=== PATIENT | male | born 1925 | race Caucasian/White ===

== ENCOUNTER 2016-11-29 08:25 | Emergency (ER) | payer MEDICARE, BC ==
--- NOTE | 2016-11-29 08:46 | EDM.PDOC ---
ED HPI GENERAL MEDICAL PROBLEM - General Stated Complaint: HEAD INJURY Time Seen by Provider: 11/29/16 08:25 Source of Information: Reports: Patient, EMS, Family History Limitations: Reports: Altered Mental Status, Physical Impairment - History of Present Illness INITIAL COMMENTS - FREE TEXT/NARRATIVE: 89 years old w m with history of Parkinson and mental retardation, came to the ed by EMS after he fell [facility] the [facility], unwitnessed on the back of his head. No LOC as per EMS. Pt was able to walk with a walker before and after the fall. No other acute medical issues. BP 146/97 pulse 71 Temp 37.4 O2 98% on RA RR 17 Onset Date: 11/29/16 Onset Time: 06:00 Duration: Hour(s): Location: Reports: Head back of the head Pain Score (Numeric/FACES): 5 - Related Data Allergies Allergy/AdvReac Type Severity Reaction Status Date / Time No Known Allergies Allergy Verified 11/29/16 08:56 Home Meds: Home Meds Aspirin 81 mg PO DAILY 11/29/16 [History] Calcium Carb & Citrate/Vit D3 [Calcium + D3 ER Tablet] 1 tab PO DAILY 11/29/16 [ History] Carbidopa/Levodopa [Sinemet 25-100 mg Tablet] 0.5 tab PO BID 11/29/16 [History] Cholecalciferol (Vitamin D3) [Vitamin D3] 2,000 unit PO DAILY 11/29/16 [History] Cyanocobalamin (Vitamin B-12) [B-12] 500 mcg PO DAILY 11/29/16 [History] FLUoxetine [PROzac] 10 mg PO DAILY 11/29/16 [History] Fluticasone Propionate [Flovent HFA 100 mcg] 2 puff PO BID 11/29/16 [History] Gluc 2KCl/Chondr/Antonio Hy/Hy Ac [Glucosamine & Chondroitin Cap] 1 cap PO DAILY [History] Lutein/Min/Vit C/Vit E Acetate [Ocuvite Lutein] 1 cap PO DAILY 11/29/16 [History ] [place]-3 Fatty Acids/Fish Oil [Cvs Fish Oil 1,000 mg Softgel] 1,000 mg PO DAILY 11/29/16 [History] Polyethylene Glycol 3350 [MiraLAX] 17 gm PO DAILY 11/29/16 [History] Potassium 99 mg PO DAILY 11/29/16 [History] Vitamin E 1,000 unit PO DAILY 11/29/16 [History] Review of Systems - Review of Systems Review Of Systems: Unable To Obtain ED EXAM, GENERAL - Physical Exam Exam: See Below Exam Limited By: Altered Mental Status General Appearance: Alert, WD/WN, Mild Distress Eye Exam: Bilateral Eye: Normal Inspection Ears: Normal External Exam Ear Exam: Bilateral Ear: Auricle Normal Nose: Normal Inspection, Normal Mucosa Throat/Mouth: Normal Inspection, Normal Lips Head: Other (LAC post tosin) Neck: Normal Inspection Respiratory/Chest: No Respiratory Distress, Lungs Clear (poor insp effort) Cardiovascular: Normal Peripheral Pulses Peripheral Pulses: 1+: Femoral (L), Femoral (R) GI/Abdominal: Normal Bowel Sounds, Soft, Non-Tender, No Distention (Male) Exam: Deferred Rectal (Males) Exam: Deferred Back Exam: Normal Inspection, Full Range of Motion Extremities: Normal Inspection, Normal Range of Motion, Non-Tender, No Pedal Edema Neurological: Alert, CN II-XII Intact, Abnormal Gait (arthritis, parkinson) Psychiatric: Normal Affect, Normal Mood Skin Exam: Other (LAC post. tosin) Lymphatic: No Adenopathy ED TRAUMA PROCEDURES - Laceration/Wound Repair Middle Posterior Occipital Head Lac/Wound Length In cm: 3 (angulated post tosin) Appearance: Subcutaneous, Clean, Other (angulated) Distal NVT: Neuro & Vascular Intact, No Tendon Injury Anesthetic Type: Topical (LET) Skin Prep: Providone-Iodine (Betadine) Exploration/Debridement/Repair: Wound Explored, In a Bloodless Field, Explored to Base Closed With: [place] # of Sutures: 7 Suture Type: Interrupted Sterile Dressing Applied: Nurse Tetanus Status Addressed: Yes Complications: No Course - Vital Signs Text/Narrative:: 89 years old w m with history of Parkinson and mental retardation, came to the ed by EMS after [facility], unwitnessed on the back of his head. No LOC as per EMS. Pt was able to walk with a walker before and after the fall. No other acute medical issues. BP 146/97 pulse 71 Temp 37.4 O2 98% on RA RR 17 PE: Angulated LAC mid occiput, Bonstructure beneath is intact Imaging: Head NAD, RAD rquested to consult a neurosurgeon Procedure: Please see note above. Not indicated Impression: Fall with head injury LAC mid occiput Consultation: Dr. Gregorio, Neurosurgeon at [facility]: No indication for any procedure indicated Tx: Wound repair, Ice, Dessing Reexam: improved, pt was able to ambulate, Plan: D/C with instructions Last Recorded V/S: Last Vital Signs Temp 36.7 C 11/29/16 11:15 Pulse 81 11/29/16 11:15 Resp 16 11/29/16 11:15 BP 143/61 H 11/29/16 11:15 Pulse Ox 97 11/29/16 11:15 - Orders/Labs/Meds Orders: Active Orders 24 hr Category Date Time Status Vaccines to be Administered [RC] PER UNIT ROUTINE Care 11/29/16 10:55 Active Meds: Medications Discontinued Medications Generic Name Dose Route Start Last Admin Trade Name Freq PRN Reason Stop Dose Admin Diphtheria/Tetanus/Acell Pertussis 0.5 ml 11/29/16 10:54 11/29/16 10:59 Adacel IM 11/29/16 10:55 0.5 ml .ONCE ONE Administration Lidocaine/Tetracaine 5 ml 11/29/16 08:50 11/29/16 09:21 Let Soln TOP 11/29/16 08:51 5 ml ONETIME ONE Administration Departure - Departure Time of Disposition: 10:56 Disposition: Home, Self-Care 01 Condition: Good Clinical Impression: Laceration Fall Qualifiers: Encounter type: initial encounter Qualified Code(s): W19.XXXA - Unspecified fall, initial encounter - Discharge Information Instructions: Head Injury, Adult, [id number], Laceration Care, Adult, Easy-to -Read, Stitches, Donna, or Adhesive Wound Closure, [id number] Referrals: Jan Oh MD [Primary Care Provider] - Forms: ED Department Discharge Additional Instructions: Please hold aspirin for 3 days, please apply neosporine to wound twice daily for 3 days, please apply pressure for 24 hours to tosin, f/u in 3 days for wound check, stable removal in 10 days. please come back if your symptoms get worse acutely. - My Orders Last 24 Hours: My Active Orders 11/29/16 10:55 Vaccines to be Administered [RC] PER UNIT ROUTINE - Assessment/Plan Last 24 Hours: My Active Orders 11/29/16 10:55 Vaccines to be Administered [RC] PER UNIT ROUTINE
[2016-11-29] MEDS ORDERED: Lidocaine/EPINEPHrine/Tetracaine Soln 5 ML Each TOP ONE (08:50)
[2016-11-29] MEDS ORDERED: Diphtheria,Pertussis(Acell),Tetanus Vaccine 0.5 ML SDV IM ONE (10:54)
--- NOTE | 2016-11-29 11:22 | CT ---
INDICATION: Trauma, fell with laceration back of head. CT HEAD WITHOUT CONTRAST: Serial contiguous 2.5 and 5-mm sections were obtained through the brain without contrast and revealed no cranial fracture site. Total Exam DLP = 949.36 mGy-cm. The paranasal sinuses showed evidence of thickening of the linings at the bases of the frontal air cells with partial opacification of an ethmoidal air cell on the right likely due to a retention cyst, and a few minimally thickened linings of ethmoidal air cells, mostly anteriorly. Very minimal thickening of the lining of the right maxillary antrum is also noted. Mastoid air cells appear to be fairly well aerated. Calcifications are noted in the vertebral and internal carotid arteries. Ventricles are prominent, but midline - no shift of midline structures is noted. Cortical sulci are prominent. There are some minimal focal areas of decreased density in the white matter, suggesting minimal microvascular disease. No evidence of a bleeding site or hematoma was identified - no definite acute intracranial abnormality was seen. IMPRESSION: 1. Generalized atrophy. 2. No acute intracranial abnormality. 3. Cerebrovascular disease. 4. Minimal microvascular disease type changes in the white matter. 5. Minimal findings in the paranasal sinuses. Report was called to Dr. Churchill at 1012 hours, 11/29/2016. [facility]ITALAngie
--- NOTE | 2016-11-29 11:24 | CT ---
INDICATION: Trauma, fell with laceration back of head. CT CERVICAL SPINE: Spiral 2.5-mm axial sections were obtained through the cervical spine with sagittal and coronal reconstructions and revealed fragments of bone at the caudal aspect of the clivus, just cranial to the odontoid process. 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 The bone fragments in that area may represent chip fracture fragments off the clivus. They may be due to a previous trauma. There is an additional possible acute chip fracture fragment off the right occipital condyle medially. The anterior arch of the atlas appears to be intact. The odontoid shows no evidence of a fracture. No C2 fracture is suggested. Total Exam DLP = 909.38 mGy-cm. Prevertebral space and bone density appear to be fairly normal. Diffuse degenerative disk disease and hypertrophic degenerative changes are noted from C3 through C7-T1, with fusion of the C5-6 and partially C6-7 vertebral bodies. Hypertrophic changes are noted at the lateral masses. A reversal of the normal cervical lordosis is noted, which appears to be centered at C5-6. Carotid artery calcifications are also noted incidentally. Calcification is suggested posterior to the spinous processes which may be on the basis of previous soft tissue injuries in that area. IMPRESSION: Cannot exclude chip fracture fragments off the clivus and right occipital condyle. No gross distraction of vertebral elements is noted. There is some anterior shift of C2 on C1, which is felt to be degenerative due to severe osteoarthritic changes and virtually no remaining joint space at the atlantoodontoid joint. Additionally, reversal of cervical lordosis and diffuse degenerative changes and disk disease are noted from C3 through T1. Also, there is evidence of cerebrovascular disease. Report was called to Dr. Churchill at 1012 hours, 11/29/2016. [id number]
== END 2016-11-29 11:17 | disposition home or self-care (01) ==
LOC: FB.ED 08:25
DX: S01.01XA Laceration without foreign body of scalp, initial encounter (principal); G20 Parkinson's disease; Z23 Encounter for immunization; Z79.82 Long term (current) use of aspirin; Z79.899 Other long term (current) drug therapy; W19.XXXA Unspecified fall, initial encounter; Y92.129 Unspecified place in nursing home as the place of occurrence of the external cause
CPT/HCPCS: 12002; 70450; 72125; 90471; 90715; 99283; 99284; A9270; 90472; G0010